=== PATIENT | male | born 2000 | race Caucasian/White ===

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

== ENCOUNTER → 2021-04-19 | Outpatient (CLI) | payer OTHER ==
[~2021-04-19] MED LIST changes: +ACULAR 0.5%3 ML OPH; +Tobrex Ophth S2.5 ML OPH
== END | disposition home or self-care (01) ==
LOC: COVID19 15:41
PROVIDERS: ATTEND Family Medicine
DX: Z11.52 Encounter for screening for COVID-19 (principal)

== ENCOUNTER 2023-02-26 01:10 | Emergency (ER) | payer SELFPAY ==
[~2023-02-26] VITALS: Ht 180.3 cm; Wt 72.6 kg
[2023-02-26 01:36] LABS: MEAN CELL VOLUME 88.6 fl (80.0-94.0); MEAN CORPUSCULAR HGB 28.7 pg (27.0-31.0); MEAN CORPUSCULAR HGB CONC 32.4 g/dl (33.0-37.0); MEAN PLATELET VOLUME 9.4 fl (9.6-12.3); PLATELET COUNT AUTOMATED 353 10*3/uL (130-400); RED BLOOD COUNT 4.74 10*6/uL (4.50-5.90); RED CELL DISTRI WIDTH 12.9 % (0-14.5); WHITE BLOOD COUNT 18.5 10*3/uL (4.8-10.8)
[2023-02-26 01:37] LABS: MANUAL DIFF REFLEX YES
[2023-02-26 01:55] LABS: PLATELET SUFFICIENCY NORMAL (NORMAL); TOTAL CELLS COUNTED 100 #CELLS
[2023-02-26 02:04] LABS: ALKALINE PHOSPHATASE 94 U/L (46-116); BUN 5 mg/dl (9-23); CHLORIDE 105 mmol/L (98-107); LIPASE 23 U/L (12-53); POTASSIUM 3.9 mmol/L (3.4-5.1); TOTAL PROTEIN 7.6 gm/dL (6.0-8.0)
[2023-02-26 02:09] LABS: SGPT/ALT < 7 U/L (5-49)
[2023-02-26 04:46] VITALS: BP 111/46
== END 2023-02-26 04:53 | disposition short-term general hospital (02) ==
LOC: ED 01:10
PROVIDERS: Internal Medicine
DX: K50.90 Crohn's disease, unspecified, without complications (principal); D72.829 Elevated white blood cell count, unspecified; K63.1 Perforation of intestine (nontraumatic)

== ENCOUNTER 2024-07-01 17:51 | Emergency (ER) | payer SELFPAY ==
[~2024-07-01] VITALS: Ht 180.3 cm; Wt 79.4 kg
[2024-07-01 18:03] VITALS: BP 129/63
[2024-07-01] MEDS ORDERED: HUMIRA40 MG/0.3 SQ (18:09)
[2024-07-01] MEDS ORDERED: MORPHINE Sulfate 2 MG/ML SYR IV ONE (18:15)
[2024-07-01] MEDS ORDERED: SODIUM CHLORIDE 0.9% 1,000 ML IV ONE (18:15)
[2024-07-01] MEDS ORDERED: Ondansetron Hydrochloride 4 MG/2 ML VIAL IV ONE (18:15)
[2024-07-01] MEDS ORDERED: IOHEXOL 300 MG/ML 100 ML VIAL IV ONE (18:20)
[2024-07-01 18:42] LABS: BASO % 0.4 % (0.0-1.0); EOS # 0.1 10*3/uL (0.0-0.4); EOS % 0.7 % (1.0-4.0); MEAN CELL VOLUME 92.7 fl (80.0-94.0); MEAN CORPUSCULAR HGB 31.5 pg (27.0-31.0); MEAN PLATELET VOLUME 10.5 fl (9.6-12.3); MONO # 0.6 10*3/uL (0.1-1.0); MONO % 7.5 % (3.0-9.0); NEUT # 6.4 10*3/uL (2.3-7.9); NEUT % 77.4 % (47.0-73.0); PLATELET COUNT AUTOMATED 234 10*3/uL (130-400); RED BLOOD COUNT 4.64 10*6/uL (4.50-5.90); RED CELL DISTRI WIDTH 11.7 % (0-14.5); WHITE BLOOD COUNT 8.3 10*3/uL (4.8-10.8)
[2024-07-01 19:04] LABS: ALKALINE PHOSPHATASE 124 U/L (46-116); BUN 7 mg/dl (9-23); CHLORIDE 104 mmol/L (98-107); LIPASE 26 U/L (12-53); POTASSIUM 3.7 mmol/L (3.4-5.1); SGPT/ALT 19 U/L (5-49)
[2024-07-01 20:56] LABS: BILIRUBIN Negative (Negative); BLOOD Negative (Negative); CLARITY Clear (Clear); COLOR Yellow (Yellow); GLUCOSE Negative (Negative); KETONE 1+ (Negative); LEUKO ESTERASE Negative (Negative); NITRITE Negative (Negative); SPECIFIC GRAVITY >= 1.030 (1.001-1.030); UROBILINOGEN 0.2 E.U./dl (0.0-1.0)
[2024-07-01 21:03] LABS: MUCOUS 1+; RBC 0-2 rbc/hpf (0-2)
== END 2024-07-01 21:27 | disposition home or self-care (01) ==
LOC: ED 17:51
PROVIDERS: Emergency Medicine
DX: R11.2 Nausea with vomiting, unspecified (principal); R10.31 Right lower quadrant pain; Z79.899 Other long term (current) drug therapy

== ENCOUNTER 2024-12-03 22:05 | Emergency (ER) | payer SELFPAY ==
[~2024-12-03] VITALS: Ht 180.3 cm; Wt 98.9 kg
[~2024-12-03 22:05] MED LIST changes: +HUMIRA40 MG/0.3 SQ
[2024-12-03] MEDS ORDERED: VIBRAMYCIN100 MG PO (22:29)
[2024-12-03] MEDS ORDERED: Doxycycline Hyclate 100 MG 2 TAB ED PACK PO SCH (22:30)
[2024-12-03] MEDS ORDERED: CLOBETASOL PROPIONATE 30 GM TUBE T ONE (22:30)
[2024-12-03 22:34] VITALS: BP 111/76
== END 2024-12-03 22:35 | disposition home or self-care (01) ==
LOC: ED 22:05
DX: S80.862A Insect bite (nonvenomous), left lower leg, initial encounter (principal); F17.210 Nicotine dependence, cigarettes, uncomplicated; W57.XXXA Bitten or stung by nonvenomous insect and other nonvenomous arthropods, initial encounter; Y93.89 Activity, other specified; Y92.89 Other specified places as the place of occurrence of the external cause; Y99.8 Other external cause status

== ENCOUNTER 2025-01-19 11:07 | Emergency (ER) | payer SELFPAY ==
[~2025-01-19] VITALS: Ht 180.3 cm; Wt 102.1 kg
[~2025-01-19 11:07] MED LIST changes: +VIBRAMYCIN100 MG PO
[2025-01-19 11:16] VITALS: BP 147/74
[2025-01-19] MEDS ORDERED: IOHEXOL 300 MG/ML 100 ML VIAL IV ONE (11:50)
[2025-01-19 11:52] LABS: BASO # 0.0 10*3/uL (0.0-0.1); BASO % 0.5 % (0.0-1.0); EOS # 0.2 10*3/uL (0.0-0.4); EOS % 3.1 % (1.0-4.0); MEAN CELL VOLUME 94.6 fl (80.0-94.0); MEAN CORPUSCULAR HGB 32.0 pg (27.0-31.0); MEAN PLATELET VOLUME 9.3 fl (9.6-12.3); MONO # 0.6 10*3/uL (0.1-1.0); MONO % 9.4 % (3.0-9.0); NEUT # 3.7 10*3/uL (2.3-7.9); NEUT % 62.7 % (47.0-73.0); NUCLEATED RED BLOOD CELL 0.0 % (0.0-0.0); NUCLEATED RED BLOOD CELL 0.0 10*3/uL (0.0-0.0); PLATELET COUNT AUTOMATED 232 10*3/uL (130-400); RED CELL DISTRI WIDTH 11.8 % (0-14.5)
[2025-01-19] MEDS ORDERED: IOHEXOL 300 MG/ML 100 ML VIAL ONE (12:10)
[2025-01-19 12:19] LABS: BUN 5 mg/dl (9-23); SGPT/ALT 39 U/L (5-49)
[2025-01-19 12:24] LABS: BILIRUBIN Negative (Negative); BLOOD Negative (Negative); CLARITY Clear (Clear); COLOR Yellow (Yellow); KETONE Negative (Negative); LEUKO ESTERASE Trace (Negative); NITRITE Negative (Negative); PH 7.0 (4.5-8.0); SPECIFIC GRAVITY 1.010 (1.001-1.030); UROBILINOGEN 0.2 E.U./dl (0.0-1.0)
[2025-01-19 12:32] LABS: RBC 0-2 rbc/hpf (0-2)
[2025-01-19 12:33] LABS: BACTERIA TRACE
== END 2025-01-19 13:10 | disposition home or self-care (01) ==
LOC: ED 11:07
PROVIDERS: Nurse Practitioner Family
DX: R10.31 Right lower quadrant pain (principal)